=== PATIENT | female | born 1995 | race Caucasian/White ===

== ENCOUNTER 2016-12-25 00:52 | Outpatient (CLI) ==
[2016-04-29 10:35] VITALS: BMI 29.7
== END 2016-12-25 00:53 | disposition home or self-care (01) ==
LOC: AMBL 00:52
PROVIDERS: ATTEND Internal Medicine Geriatric Medicine
DX: M54.9 Dorsalgia, unspecified (principal); R20.0 Anesthesia of skin; R11.10 Vomiting, unspecified; Z98.890 Other specified postprocedural states

== ENCOUNTER → 2017-01-06 | Outpatient (RCR) ==
[2016-04-29 10:35] VITALS: BMI 29.7
--- NOTE | 2017-01-13 15:22 | OUTEVAL ---
Patient: BASILIA WICK Acct:[id number] : 1995 Age/Sex: 21 / F Physician: JOSE ROBERTS Report Number: [id number] Date of Service:01/06/17 SUBJECTIVE:Patient reports ongoing back pain and worse symptoms since having her daughter two months ago. States she received a spinal block and has not regained sensation in the left LE since then. States she is unable to ambulate or stand for prolonged periods of time without help. She uses a walker for short distances. Her mother and her have to help her with carrying for her 4 year old and the baby. States she is not able to sleep much at night. She was told she has a herniated disc at L5-S1. She sees a surgeon tomorrow. OBJECTIVE: ROM: Bilateral LE AROM is WFL's. STRENGTH: Bilateral hips 4-/5, knees 3+/5, ankles 3/5. Trunk strength 4-/5. SENSATION: Patient reports absent sensation from lateral region of left buttock down to the toes of the left foot. SPECIAL TESTS: Unable to perform Special Tests due to pain with all positions and movements. MOBILITY: Transfers with CGA of one for sit to stand and stand to sit. Ambulates with mod assist of one short distances in the department without an assistive device. Demonstrates flexed forward posture at the lumbar spine, decreased knee and hip flexion. ASSESSMENT: Patient presents to therapy with a diagnosis of Lumbar disc herniation, lumbar radiculopathy. She reports pain with all positions and movements. Reports significant functional limitation with all ADL's and selfcare and is unable to care for her new baby without help from and mother. Patient called the next day from the evaluation stating she will be having surgery and was told to not continue with Physical Therapy at this time. PLAN: No further therapy to be performed at this time as patient is now scheduled for surgery to the lumbar spine. MIGUEL
== END ==
PROVIDERS: ATTEND Physician Assistant
DX: M51.26 Other intervertebral disc displacement, lumbar region (principal); M54.16 Radiculopathy, lumbar region

== ENCOUNTER 2017-03-23 07:39 | Outpatient (CLI) | payer OTHER ==
[2016-04-29 10:35] VITALS: BMI 29.7
--- NOTE | 2017-03-23 08:43 | US ---
Exam: Leon-scale and color Doppler ultrasonographic evaluation of the abdomen. Limited ultrasound evaluation. Comparison: CT performed 02/23/2016. Reason for exam: Abdominal pain. FINDINGS: The liver measures approximately 13.61 cm with normal appearing echotexture and normal an tegrade portal venous flow. No intrahepatic ductal dilatation or perihepatic free fluid. The gallbladder wall is prominent measuring 0.42 cm with a positive sonographic Zimmerman's test. There is posterior shadowing seen within the dependent portion of the gallbladder likely secondary t o gallstones. No pericholecystic inflammatory change. The partially imaged pancreas as mild pancreatic ductal dilatation measuring 2.87 mm. The right kidney measures 10.8 x 4.27 x 5.42 cm with normal appearing echotexture, no hydronephrosis , and no nephrolithiasis. Impression: 1. Mildly prominent gallbladder wall with positive sonographic Zimmerman's test and gallstones. Imagin g findings are consistent with cholecystitis. If clinical concern exists, a nuclear medicine HIDA s can may be performed. 2. Mildly prominent pancreatic duct. Recommend follow-up CT examination of the abdomen pelvis with contrast administration or MRI of the abdomen for further characterization. Report faxed at [phone] hours on 03/23/2017.
== END 2017-03-23 07:40 | disposition home or self-care (01) ==
LOC: RAD 07:39
PROVIDERS: ATTEND Family Medicine
DX: R10.84 Generalized abdominal pain (principal)

== ENCOUNTER 2019-01-05 13:06 | Outpatient (CLI) ==
[2016-04-29 10:35] VITALS: BMI 29.7
--- NOTE | 2019-01-05 13:53 | DI ---
EXAM: Two views of the chest. History: Cough. Comparison: Chest radiograph 02/17/2014 Findings: Heart size is normal. No focal consolidation. No appreciable pleural fluid and no pneumo thorax. 5 mm nodular density within the left midlung. Impression: 1. No acute cardiopulmonary process. 2. 5 mm left mid lung nodule is probably benign.
== END 2019-01-05 13:07 | disposition home or self-care (01) ==
LOC: RAD 13:06
PROVIDERS: ATTEND Family Medicine
DX: R05 Cough (principal)